=== PATIENT | female | born 1970 | race Two or more races ===

== ENCOUNTER 2024-04-22 14:33 | Emergency (ER) | payer OTHER, SELFPAY ==
[2024-04-22 14:35] VITALS: BMI 31.8
[2024-04-22 14:43] VITALS: BP 111/67; BP 91/66; PULSE 99; RESP 18; TEMP 36.8; O2SAT 95
--- NOTE | 2024-04-22 14:50 | EKG_ITS ---
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
--- NOTE | 2024-04-22 14:51 | XR_ITS ---
Examination: CT brain head without contrast. 2-D sagittal coronal reconstructions Date and time of exam:April 22, 2024 1626 hours INDICATIONS: Hypotension with dizziness onset today CTDI: vol (mGy):51 DLP: (mGycm):1023 Technique: Multiple CT axial sections of the brain have been obtained, 5 mm slice thickness. Contrast has not been administered. 2-D sagittal, coronal reconstructions have been obtained Low dose protocols were performed. One or more of the following dose reduction techniques were used; automated exposure control, adjustment of the mA and/or KV according to patient size, use of iterative reconstruction technique. Findings: No significant ventricular enlargement. Intra-axial or extra-axial hemorrhage density is not seen. No mass effect or midline shift Basal cisterns are not remarkable. Fourth ventricle is midline. Cranial vault intact. Impression: Negative for acute hemorrhage, mass effect or midline shift
--- NOTE | 2024-04-22 14:53 | PD.EDRME ---
Rapid Medical Screening Exam RME Arrival date/time: 04/22/24 14:33 53-year-old female with a history of ioz-phimczg-ojzoqttsp diabetes sent in by PCP for dizziness and low blood pressure readings while in office Chief Complaint: General Adult/Misc Complain Time Seen by Provider: 04/22/24 14:46 Vital signs: Vital Signs Temperature 98.3 F 04/22/24 14:43 Pulse Rate 99 04/22/24 14:43 Respiratory Rate 18 04/22/24 14:43 Blood Pressure 111/67 04/22/24 14:43 Pulse Oximetry (%) 95 04/22/24 14:43 Oxygen Delivery Method Room Air 04/22/24 14:43
--- NOTE | 2024-04-22 15:13 | PD.EDADULT ---
ED General RME/HPI General Chief complaint: General Adult/Misc Complain Stated complaint: LOW BP/ SENT BY PCP Time Seen by Provider: 04/22/24 14:46 Arrival date/time: 04/22/24 14:33 RME / HPI RME / HPI narrative: 04/22/24 14:33 53-year-old female with a history of knr-nlwbudn-aqwgvvlsj diabetes sent in by PCP for dizziness and low blood pressure readings while in office This section includes all my notes and documentations, including HPI, PE, and ED course. Omid Morley MD HPI: 53-year-old female here to be evaluated with low BP levels at PCP office just prior to arrival. SBP was in the 70s. She reports feeling lightheaded and almost passing out when standing up. No headache. No speech or visual impairment. No loss of power in the arms or legs. No chest pain or shortness of breath. No fever or chills. No other complaints. ROS: All negative except as documented in HPI. Physical Exam: General: Alert and oriented. No acute distress. Orthostatic hypotension noted. Eyes: Conjunctivae and lids clear. EOMI. PERRL. ENT: No nasal congestion. Pharynx normal. Tympanic membrane normal bilaterally. Neck: Supple. No carotid bruit. No JVD. Heart: RRR. Lungs: No respiratory distress. Good air movement. No rhonchi, wheezing, rales. Abdomen: Soft and nontender. Normal bowel sounds. No distension. No rebound or guarding. Back: No CVA tenderness. Legs: No clubbing, cyanosis, edema. Skin: Warm and dry. Neuro: Alert and oriented X 3. Cranial Nerves II-XII grossly intact. No peripheral motor deficits. I reviewed all diagnostic test results. My interpretation of the EKG is sinus rhythm with no acute ST?T changes, reviewed with Dr. Elaine. My interpretation of the chest x-ray is no acute findings. My review of the head CT report is no acute findings. Blood tests and urine tests unremarkable. At this point, diagnoses include orthostatic hypotension. Treatment here included IV fluid. Significant improvement noted. Recommended more outpatient workup. Based on my best medical judgment, made decision no further evaluation or treatment indicated at this time. Patient understands and agrees to the discharge instructions customized and printed, see below. Discharge instructions from Dr. Morley: 1. After extensive evaluation, there is no life-threatening condition.? Such as stroke or brain tumor or heart attack or pulmonary embolism (blood clots in your lungs) or pneumothorax (collapsed lung). 2. Your symptoms are due to orthostatic hypotension. Meaning when you sit or stand up, your BP drops. So your brain doesn't get enough blood flow and you can feel dizzy and even pass out. 3. To prevent orthostatic hypotension, increase oral fluid and maintain clear urine for good hydration. If dark or yellow, increase oral fluid. 4. See a private doctor on 04/23/2024 for recheck and further care. Ask to review all test results and official radiology reports, to make sure you receive all necessary follow-ups and monitoring. To make sure there is no serious underlying heart condition, ask to help you get more tests for your heart that cannot be done here in the ER.? Such as Holter Monitor (cardiac monitoring at home from a day to even a month), heart stress test (on treadmill or with medication), echocardiogram (imaging of your heart structures), heart catherization (checking for blockages in your heart arteries), and a referral to see a Lemon Grower. 5. Seek immediate medical care with worsening or with any concerns.?? Omid Morley MD Related Data Home Medications ?Medication ?Instructions ?Recorded ?Confirmed albuterol 90 mcg/actuation aerosol mcg inhalation 10/22/20 inhaler metformin 500 mg tablet 500 mg PO BID 10/22/20 10/22/20 Allergies Allergy/AdvReac Type Severity Reaction Status Date / Time codeine Allergy Severe RASH AND Verified 12/17/23 09:37 HIVES ondansetron Allergy Severe HIVES Verified 12/17/23 09:37 Course Quality Measures none Orders Category Date Time Status Bedside COVID-19 Antigen Test NOW Care 04/22/24 14:51 Active Bedside Influenza A&B Antigen Test NOW Care 04/22/24 14:51 Completed EKG (ED ONLY) *Do not use* NOW Care 04/22/24 14:50 Completed Orthostatic Vitals NOW Care 04/22/24 15:39 Active Saline [Insert IV] NOW Care 04/22/24 15:[address] head/brain wo con Stat Exams 04/22/24 14:51 Completed EKG (ED Only) Stat Exams 04/22/24 14:50 Draft XR chest 1V portable Stat Exams 04/22/24 15:40 Completed BNP [B-Type Natriuretic Peptide] Stat Lab 04/22/24 15:22 Completed Beta Hydroxybutyrate Stat Lab 04/22/24 15:22 Completed CBC Stat Lab 04/22/24 15:22 Completed CMP [Comprehensive Metabolic Panel] Stat Lab 04/22/24 15:22 Completed D-Dimer Stat Lab 04/22/24 15:22 Completed Lactate (Lactic Acid) Stat Lab 04/22/24 15:22 Completed Magnesium Stat Lab 04/22/24 15:22 Completed Troponin I Stat Lab 04/22/24 15:22 Completed UA [Urinalysis] Stat Lab 04/22/24 15:21 Completed Sodium Chloride 0.9% 1000 ml [Ns] 1,000 ml Med 04/22/24 15:39 Discontinued IV 999 mls/hr Vital Signs Vital signs: Vital Signs Temperature 98.3 F 04/22/24 14:43 Pulse Rate 99 04/22/24 14:43 Respiratory Rate 18 04/22/24 14:43 Blood Pressure 111/67 04/22/24 14:43 Pulse Oximetry (%) 95 04/22/24 14:43 Oxygen Delivery Method Room Air 04/22/24 14:43 [facility] Patient data External records reviewed:: [facility] previous records Clinical information provided by:: patient Social determinants that could affect healthcare access:: none Patient has the following chronic illnesses:: DM and hyperlipidemia How is presenting disease/condition affected by chronic disease/condition?: uneffected by Evaluation data The following diagnostics were reviewed and interpreted by me:: lab results, radiology exam(s) and EKG tracing(s) (My interpretation of the EKG is: Sinus rhythm (91 bpm) with nonspecific ST-T changes. Omid Morley MD (reviewed with Dr. Elaine)) Lab and/or radiology exams considered but not ordered:: None Interpretation Summary: Orthostatic hypotension Medications Medications considered but not ordered:: None Medication administrations:: Medication Administration History Discontinued Medications Sodium Chloride (Ns) 1,000 mls @ 999 mls/hr IV .Q1H1M ONE Stop: 04/22/24 16:39 IV fluid Consultations Consultation(s) initiated? (list below): Yes Consultation #1 (Physician, Specialty, Details): Cardiology for EKG reading help Diagnosis Differential Diagnosis ED Complaint MDM: CVA, brain tumor, OH, PE, pneumothorax, sepsis, electrolyte abnormalities Most likely diagnosis given after review of the tests above:: Orthostatic hypotension Admission Indicated Admission indicated?: not indicated Explain why admission is indicated or not indicated:: Admission criteria not met Admission Request Was there a request for admission?: No Disposition Plan Disposition Plan: Discharge Discharge Attestation Discharge Attestation: The patient and all family members were given an opportunity to ask questions and understood the discharge instructions. Discharge instructions specifically effects, indications for sooner follow up or return to the emergency department, and the expected course of current diagnosis. Patient condition: Stable Medical Decision Making Differential Diagnosis Differential Diagnosis: CVA, brain tumor, OH, PE, pneumothorax, sepsis, electrolyte abnormalities Lab Data 04/22/24 15:22 04/22/24 15:22 Labs: Lab Results 04/22/24 04/22/24 Range/Units 15:21 15:22 WBC 9.6 (3.6-11.0) Thou/mm3 RBC 5.35 H (4.00-5.20) Miln/mm3 Hgb 14.3 (12.0-16.0) g/dL Hct 43.9 (36.0-46.0) % MCV 82 (80-100) fL MCH 26.7 (25.0-35.0) pg MCHC 32.6 (31.0-37.0) g/dl RDW Std Deviation 40.5 (36.4-46.3) fL Plt Count 271 (140-440) Thou/mm3 Neut % (Auto) 64 (37-80) % Lymph % (Auto) 28 (10-50) % [place] % (Auto) 6 (0-12) % Eos % (Auto) 1 (0-10) % Baso % (Auto) 0 (0-2.5) % Neut # (Auto) 6.1 (1.8-7.7) Thou/mm3 Lymph # (Auto) 2.7 (1.0-4.8) Thou/mm3 [place] # (Auto) 0.6 (0.0-0.8) Thou/mm3 Eos # (Auto) 0.1 (0.0-0.5) Thou/mm3 Baso # (Auto) 0.0 (0.0-0.2) Thou/mm3 Immature Gran # (Auto) 0.03 H (0.00-0.00) Thou/mm3 Absolute Nucleated RBC 0.00 (0.00-0.00) Thou/mm3 Immature Gran % 0 (0-0) % Nucleated RBC % 0 (0) /100 WBC D-Dimer 462 (<600) ng/mL Sodium 136 (136-145) mMol/L Potassium 4.0 (3.4-5.1) mMol/L Chloride 103 (98-107) mMol/L Carbon Dioxide 25.1 (20.0-31.0) mMol/L Anion Gap 8 (7-16) BUN 25 H (9-23) mg/dL Creatinine 0.8 (0.6-1.3) mg/dL Estim Creat Clear Calc 80.4 (>60) mL/min eGFR > 60 (60 - ) See Note BUN/Creatinine Ratio 31 H (12-20) Ratio Glucose 223 H (74-106) mg/dL Calculated Osmolality 283 (275-295) Lactic Acid 1.5 (0.4-2.0) mMol/L Calcium 9.8 (8.3-10.6) mg/dL Corrected Calcium 9.8 (8.5-10.1) mg/dL Magnesium 1.9 (1.6-2.6) mg/dL Total Bilirubin 0.4 (0.3-1.2) mg/dL AST 10 (0-34) U/L ALT 9 L (10-49) U/L Alkaline Phosphatase 92 (46-116) U/L Troponin I < 0.002 (0.0-0.045) ng/mL B-Natriuretic Peptide < 20 (0-100) pg/mL Total Protein 7.7 (5.7-8.2) gm/dL Albumin 4.5 (3.5-5.0) gm/dL Globulin 3.2 (2.3-3.5) gm/dL Albumin/Globulin Ratio 1.4 (1.2-2.2) Beta-Hydroxybutyrate/Acetoacetate 0.2 (<0.6) mmol/L Ur Collection Type Clean Catch Urine Color Lt-Yellow (Lt Yel-Yel) Urine Clarity Clear (Clear/Hazy) Urine pH 6.5 (5.0-7.0) Ur Specific [place] 1.040 H (1.001-1.035) Urine Protein Trace (Neg - Trace) Urine Glucose (UA) 4+ A (Negative) Urine Ketones Trace (Negative) Urine Blood Negative (Negative) Urine Nitrite Negative (Negative) Urine Bilirubin Negative (Negative) Urine Urobilinogen (Auto) Negative (0.0-1.0) mg/dL Ur Leukocyte Esterase Negative (Negative) Urine RBC 3 (0-3) /hpf Urine WBC 1 (0-5) /hpf Ur Squamous Epith Cells 1 (0-5) /hpf Urine Bacteria Rare (None) Discharge Plan Plan Patient Disposition: HOME (Self Care) Prescriptions/Referrals Prescriptions/Med Rec: No Action metformin 500 mg Tablet 500 mg PO BID albuterol 90 mcg/actuation Aerosol INHALATION Referrals: Shreyas Duque PA-C [Primary Care Provider] - In 1 week Problem List Clinical Impression: Orthostatic hypotension Patient/Caregiver Discharge Instructions Discharge Activity: activity as tolerated Education Materials: ED Hypotension, Orthostatic Additional Instructions: Discharge instructions from Dr. Morley: 1. After extensive evaluation, there is no life-threatening condition.? Such as stroke or brain tumor or heart attack or pulmonary embolism (blood clots in your lungs) or pneumothorax (collapsed lung). 2. Your symptoms are due to orthostatic hypotension. Meaning when you sit or stand up, your BP drops. So your brain doesn't get enough blood flow and you can feel dizzy and even pass out. 3. To prevent orthostatic hypotension, increase oral fluid and maintain clear urine for good hydration. If dark or yellow, increase oral fluid. 4. See a private doctor on 04/23/2024 for recheck and further care. Ask to review all test results and official radiology reports, to make sure you receive all necessary follow-ups and monitoring. To make sure there is no serious underlying heart condition, ask to help you get more tests for your heart that cannot be done here in the ER.? Such as Holter Monitor (cardiac monitoring at home from a day to even a month), heart stress test (on treadmill or with medication), echocardiogram (imaging of your heart structures), heart catherization (checking for blockages in your heart arteries), and a referral to see a Lemon Grower. 5. Seek immediate medical care with worsening or with any concerns.?? Print Language: Brazilian Stand Alone Forms: Jeaneth Award Info., Patient Portal Info Letter
[2024-04-22 15:29] LABS: Collection Type, Urine Clean Catch
[2024-04-22 15:33] LABS: Basophils % (Auto) 0 % (0-2.5); Eosinophils # (Auto) 0.1 Thou/mm3 (0.0-0.5); Eosinophils % (Auto) 1 % (0-10); Hematocrit 43.9 % (36.0-46.0); Hemoglobin 14.3 g/dL (12.0-16.0); Immature Granulocytes % (Auto) 0 % (0-0); Immature Granulocytes Auto 0.03 Thou/mm3 (0.00-0.00); Lymphocytes # (Auto) 2.7 Thou/mm3 (1.0-4.8); Lymphocytes % (Auto) 28 % (10-50); Mean Corpuscular HGB Conc 32.6 g/dl (31.0-37.0); Mean Corpuscular Hemoglobin 26.7 pg (25.0-35.0); Mean Corpuscular Volume 82 fL (80-100); Monocytes # (Auto) 0.6 Thou/mm3 (0.0-0.8); Monocytes % (Auto) 6 % (0-12); Neutrophils # (Auto) 6.1 Thou/mm3 (1.8-7.7); Neutrophils % (Auto) 64 % (37-80); Nucleated Red Blood Cell % 0 /100 WBC (0); Platelet Count 271 Thou/mm3 (140-440); RDW Standard Deviation 40.5 fL (36.4-46.3); Red Blood Count 5.35 Miln/mm3 (4.00-5.20); White Blood Count 9.6 Thou/mm3 (3.6-11.0)
[2024-04-22 15:39] LABS: Beta Hydroxybutyrate 0.2 mmol/L (<0.6)
--- NOTE | 2024-04-22 15:40 | XR_ITS ---
Examination: PA chest single view TECHNIQUE: Upright PA chest single view Exam date and time: April 22, 2024 1550 hours INDICATIONS: Low blood pressure today shortness of breath FINDINGS: Normal heart size Minor subsegmental atelectasis left base. No pneumonia or pulmonary edema IMPRESSION: Minor subsegmental atelectasis left base
[2024-04-22 15:44] VITALS: BP 116/80; BP 121/80; BP 65/54; PULSE 89; PULSE 90; PULSE 97
[2024-04-22 15:48] LABS: Lactate (Lactic Acid) 1.5 mMol/L (0.4-2.0)
[2024-04-22 16:01] LABS: Bacteria,Urine Rare; Bilirubin,Urine Negative (Negative); Blood,Urine Negative (Negative); Clarity,Urine Clear (Clear/Hazy); Color,Urine Lt-Yellow (Lt Yel-Yel); Glucose, Urine 4+ (Negative); Ketones,Urine Trace (Negative); Leukocyte Esterase,Urine Negative (Negative); Nitrite,Urine Negative (Negative); PH,Urine 6.5 (5.0-7.0); Protein,Urine Trace (Neg - Trace); RBC,Urine 3 /hpf (0-3); Squamous Epithelial Cell,Urine 1 /hpf (0-5); Urobilinogen,Urine Negative mg/dL (0.0-1.0); WBC,Urine 1 /hpf (0-5)
[2024-04-22 16:15] LABS: D-Dimer 462 ng/mL (<600)
[2024-04-22 16:42] LABS: Alanine Aminotransferase 9 U/L (10-49); Albumin, Serum 4.5 gm/dL (3.5-5.0); Albumin/Globulin Ratio 1.4 (1.2-2.2); Alkaline Phosphatase 92 U/L (46-116); Anion Gap 8 (7-16); Aspartate Amino Transferase 10 U/L (0-34); BUN/Creatinine Ratio 31 Ratio (12-20); Bilirubin,Total 0.4 mg/dL (0.3-1.2); Blood Urea Nitrogen 25 mg/dL (9-23); Calcium 9.8 mg/dL (8.3-10.6); Calcium (Corrected) 9.8 mg/dL (8.5-10.1); Carbon Dioxide 25.1 mMol/L (20.0-31.0); Chloride 103 mMol/L (98-107); Creatinine (Component) 0.8 mg/dL (0.6-1.3); Estimated Creatinine Clearance 80.4 mL/min (>60); Globulin 3.2 gm/dL (2.3-3.5); Glucose 223 mg/dL (74-106); Magnesium 1.9 mg/dL (1.6-2.6); Osmolality,Calculated 283 (275-295); Sodium 136 mMol/L (136-145); Total Protein 7.7 gm/dL (5.7-8.2); Troponin I < 0.002 ng/mL (0.0-0.045); eGFR > 60 See Note
[2024-04-22 16:44] LABS: B-Type Natriuretic Peptide < 20 pg/mL (0-100)
[2024-04-22 16:48] VITALS: BP 128/68; PULSE 85; RESP 20; TEMP 36.7; O2SAT 100
[2024-04-22] MEDS: SODIUM CHLORIDE 0.9% 1000 ML 1,000 ML 999 ML IV (17:10)
[2024-04-22 17:37] VITALS: BP 113/63; PULSE 82; RESP 21; TEMP 36.8; O2SAT 99
[2024-04-22 18:06] VITALS: BP 154/89; PULSE 87; RESP 15; TEMP 36.9; O2SAT 100
== END 2024-04-22 18:14 | disposition home or self-care (01) ==
PROVIDERS: Physician Assistant; Emergency Provider Emergency Medicine; PCP Physician Assistant
DX: I95.1 Orthostatic hypotension (principal)
CPT/HCPCS: 36415; 70450; 71045; 80053; 81001; 82010; 83605; 83735; 83880; 84484; 85025; 85379; 87400; 87811; 93005; 96360; 99284; J7030